=== PATIENT | male | born 1970 | race Caucasian/White ===

== ENCOUNTER 2022-04-15 08:17 | Emergency (ER) | payer OTHER ==
[~2022-04-15] VITALS: Ht 180.3 cm; Wt 97.5 kg
[2022-04-15] MEDS ORDERED: AMLODIPINE BESYL5 MG (08:27)
[2022-04-15] MEDS ORDERED: HYDRALAZINE HCL50 MG PO (08:27)
[2022-04-15] MEDS ORDERED: VALSARTAN-HCTZ1 EAC3 PO (08:27)
== END 2022-04-15 12:26 | disposition home or self-care (01) ==
LOC: ER 08:17
DX: M54.50 Low back pain, unspecified (principal); Z88.6 Allergy status to analgesic agent; I10 Essential (primary) hypertension